=== PATIENT | male | born 1980 | race Caucasian/White ===

== ENCOUNTER 2018-05-18 11:50 | Emergency (ER) | payer OTHER ==
[~2018-05-18] VITALS: Ht 170.2 cm; Wt 84.6 kg
[2018-05-18 11:52] VITALS: Ht 170.2 cm; Wt 84.6 kg
--- NOTE | 2018-05-18 15:12 | ERD ---
ER Documentation Chief Complaint Chief Complaint Chest pain left side arm numbness back pain x this am HPI 38-year-old male presents the emergency department complaining of chest pain and numbness. Patient was in his usual state of health until this morning at which time he awoke with a nonspecific discomfort in the upper part of his abdomen and lower part of his chest. It was associated with a nonspecific numbness in his back a nd his left upper and lower extremity. He had no focal weakness, headache or difficulty speaking associated with this feeling of numbness. He had no significant palpitations fevers, cough or other symptoms associated with the nonspecific chest discomfort including no nausea or abdominal pain. The discomfort continued and her rank is a 7 out of 10 and he came to the emergency department for evaluation after his coworkers felt that he "did not look well." ROS All systems reviewed and are negative except as per history of present illness. Medications Home Meds No Active Prescriptions or Reported Meds Allergies Allergies: Coded Allergies: No Known Drug Allergies (Verified Allergy, Unknown, 05/18/18) PMhx/Soc Hx Respiratory Disorders: Yes (bronchitis) Hx Cardiac Disorders: Yes (CHOLESTEROL) Hx Alcohol Use: No Hx Substance Use: No Hx Tobacco Use: No Smoking Status: Never smoker FmHx Noncontributory for chief complaint Physical Exam Vitals Vital Signs Date Temp Pulse Resp B/P (MAP) Pulse Ox O2 O2 Flow FiO2 Time Delivery Rate 05/18/18 104 14 116/84 100 Room Air 13:25 (95) 05/18/18 Nasal 2 12:59 Cannula 05/18/18 98.8 110 20 124/56 99 11:52 (78) Physical Exam GENERAL: The patient is well developed and appropriate for usual state of health in no apparent distress HEENT: Pupils equal, round, and reactive to light. EOMI. There is no scleral icterus. NECK: C-spine is soft and supple, there is no meningismus. There is no cervical lymphadenopathy. LUNGS: Clear to auscultation bilaterally. There are no rales, wheezes or rhonchi. HEART: Regular rate and rhythm, no murmurs, clicks, rubs or gallops. ABDOMEN: Soft, non-tender, non-distended. There are bowel sounds in all four quadrants. No rebound or guarding. EXTREMITIES: There is no peripheral cyanosis or edema. No focal swelling or erythema. NEURO: The patient moves all four extremities with 5/5 strength. Cranial nerves II - XII are intact. Normal gait. Alert and oriented SKIN: There is no apparent rash or petechiae. HEME/LYMPHATIC: There is no evidence of excessive bruising or lymphedema. PSYCHIATRIC: The patient does not appear anxious or depressed. Result Diagram: 05/18/18 1251 05/18/18 1251 Results 24 hrs Laboratory Tests Test 05/18/18 12:51 White Blood Count 12.1 10^3/ul Red Blood Count 4.79 10^6/ul Hemoglobin 14.6 g/dl Hematocrit 41.7 % Mean Corpuscular Volume 87.1 fl Mean Corpuscular Hemoglobin 30.5 pg Mean Corpuscular Hemoglobin Concent 35.0 g/dl Red Cell Distribution Width 12.1 % Platelet Count 299 10^3/UL Mean Platelet Volume 10.4 fl Immature Granulocytes % 0.600 % Neutrophils % 89.5 % Lymphocytes % 5.3 % Monocytes % 4.0 % Eosinophils % 0.2 % Basophils % 0.4 % Nucleated Red Blood Cells % 0.0 /100WBC Immature Granulocytes # 0.070 10^3/ul Neutrophils # 10.8 10^3/ul Lymphocytes # 0.6 10^3/ul Monocytes # 0.5 10^3/ul Eosinophils # 0.0 10^3/ul Basophils # 0.1 10^3/ul Nucleated Red Blood Cells # 0.0 10^3/ul Sodium Level 138 mmol/L Potassium Level 3.7 mmol/L Chloride Level 103 mmol/L Carbon Dioxide Level 21 mmol/L Anion Gap 14 Blood Urea Nitrogen 12 mg/dl Creatinine 1.13 mg/dl Est Glomerular Filtrat Rate mL/min > 60 mL/min Glucose Level 101 mg/dl Calcium Level 10.2 mg/dl Troponin I < 0.012 ng/ml Procedures/MDM Patient was taken to a room, seen and evaluated. Comfort measures were i nitiated. Diagnostic tests were ordered and reviewed. 3 LEAD RHYTHM STRIP: [Normal sinus rhythm without ectopy] EK lead EKG reviewed by myself: [Normal Sinus Rhythm] [Normal [place] and intervals] [No ST elevation, depression, or T wave inversion] Impression: [Normal EKG] RADIOLOGY: [reviewed with the radiologist] REEVALUATION: 1510: Diagnostic tests were appreciated. Patient was reevaluated and appeared asymptomatic. he remained clinically stable and comfortable and seemed appropriate for outpatient care. MEDICAL DECISION MAKING: Patient presents with chest pain of uncertain etiology. Differential diagnosis considered includes acute myocardial infarction, pulmonary embolism, as well as vascular and pulmonary concerns. I have reviewed the patient's clinical risk factors, EKG, lab studies and imaging. At this time, patient's symptoms do not appear to be cardiac in his EKG is low risk. He has no significant risk factors other than his hypercholesterolemia. He has no risk factors for pulmonary embolism with a low risk PE RC score. Patient seems appropriate for outpatient follow-up and feels comfortable going home at this time. Departure Diagnosis: Primary Impression: Chest pain Condition: Stable Patient Instructions: Chest Pain, Uncertain Cause Additional Instructions: See your doctor for follow-up as discussed. Take a copy of your test results, if appropriate, to this follow-up visit. See your doctor or return here if your symptoms do not improve as expected. At any time, please return to the emergency department for any change or worsening in her symptoms. CAMILO GONZALEZ May 18, 2018 15:12
[2018-05-18 15:26] VITALS: BP 114/76; PULSE 103; RESP 18
== END 2018-05-18 15:29 | disposition home or self-care (01) ==
LOC: E/R 11:50
DX: R07.9 Chest pain, unspecified (principal)
CPT/HCPCS: 36415; 71045; 80048; 84484; 85025; 93005